=== PATIENT | female | born 1975 | race Caucasian/White ===

== ENCOUNTER 2020-08-13 14:47 | Emergency (ER) | payer BC ==
[2020-08-13] MEDS ORDERED: Sodium Chloride 0.9% 10 ML Syringe FLUSH PRN (15:18)
--- NOTE | 2020-08-13 15:24 | EDM.PDOC ---
ED HPI GENERAL MEDICAL PROBLEM - General Chief Complaint: Genitourinary Problem Stated Complaint: 8 WEEKS PREG/CRAMPING Time Seen by Provider: 08/13/20 14:59 Source of Information: Reports: Patient, RN Notes Reviewed History Limitations: Reports: No Limitations - History of Present Illness INITIAL COMMENTS - FREE TEXT/NARRATIVE: Patient is a 45-year-old female who presents to the ER for her evaluation of with vaginal bleeding and abdominal cramping. Patient notes that she is 8 weeks , her last menstrual period was June 14, 2020, she is a G8, P3, and has had multiple spontaneous miscarriages. She sees an [facility] TECHNIC[facility] provider in [place]. Patient states that the cramping has progressively gotten worse throughout the , but it seemed to have worsened this morning at around 10 AM, she did call her doctor in [place], they scheduled her for an ultrasound tomorrow however she is worried because she has some some associated vaginal bleeding as well causing some increased anxiety. She did use Tylenol for her pain, this seemed to help take the edge off. She has taken exactly 1.5 tabs of an extra strength Tylenol, throughout the morning. She has had no fevers or chills, cough or shortness of breath, any other sick-like symptoms, she further denies any urinary issues. Patient notes she last ate at around 1130 or noon. States that she has only had a small amount of vaginal bleeding and has only soaked through 1 light pad for today's purposes. Abdomen Pain Score (Numeric/FACES): 5 - Related Data Allergies Allergy/AdvReac Type Severity Reaction Status Date / Time No Known Allergies Allergy Verified 08/13/20 14:57 Home Meds: Home Meds Levothyroxine Sodium [Synthroid] 75 mcg PO DAILY 08/13/20 [History] Pnv No.103/Folic/Om3s/Fish Oil [ Gummies] 2 tab PO DAILY 08/13/20 [History] Past Medical History [employer]IAN History: Reports: , Spontaneous Endocrine/Metabolic History: Reports: Hypothyroidism - Past Surgical History HEENT Surgical History: Reports: Oral Surgery Social & Family History - Tobacco Use Tobacco Use Status *Q: Never Tobacco User - Caffeine Use Caffeine Use: Reports: None - Recreational Drug Use Recreational Drug Use: No ED ROS GENERAL - Review of Systems Review Of Systems: Comprehensive ROS is negative, except as noted in HPI. ED EXAM, RENAL/ - Physical Exam Exam: See Below Exam Limited By: No Limitations General Appearance: Alert, WD/WN, No Apparent Distress Respiratory/Chest: No Respiratory Distress, Lungs Clear, Normal Breath Sounds, No Accessory Muscle Use, Chest Non-Tender Cardiovascular: Normal Peripheral Pulses, Regular Rate, Rhythm, No Murmur GI/Abdominal: Normal Bowel Sounds, Soft, No Distention, No Mass, Tender (suprapubic/pelvic tenderness) Extremities: Normal Inspection, Normal Capillary Refill Neurological: Alert, Oriented, Normal Cognition, No Motor/Sensory Deficits Psychiatric: Normal Affect, Normal Mood Skin Exam: Warm, Dry, Intact, Normal Color, No Rash Course - Vital Signs Last Recorded V/S: Last Vital Signs Temp 97.1 F 08/13/20 14:53 Pulse 62 08/13/20 14:53 Resp 20 08/13/20 14:53 BP 127/78 08/13/20 14:53 Pulse Ox 100 08/13/20 14:53 - Orders/Labs/Meds Orders: Active Orders 24 hr Category Date Time Status Peripheral IV Care [RC] . DIRECTED Care 08/13/20 15:19 Ordered PATIENT RETYPE [BBK] Routine Lab 08/13/20 17:55 Ordered TYPE AND SCREEN [BBK] Stat Lab 08/13/20 15:18 Ordered Sodium Chloride 0.9% [Saline Flush] Med 08/13/20 15:18 Ordered 10 ml FLUSH ASDIRECTED PRN Peripheral IV Insertion Adult [OM.PC] Stat Oth 08/13/20 15:18 Ordered Medication Orders Sodium Chloride (Sodium Chloride 0.9% 10 Ml Syringe) 10 ml FLUSH ASDIRECTED PRN PRN Reason: Keep Vein Open Labs: Laboratory Tests 08/13/20 08/13/20 08/13/20 Range/Units 15:27 15:27 15:27 WBC 11.37 H (3.98-10.04) K/mm3 RBC 4.39 (3.98-5.22) M/mm3 Hgb 13.5 (11.2-15.7) gm/dl Hct 40.0 (34.1-44.9) % MCV 91.1 (79.4-94.8) fl MCH 30.8 (25.6-32.2) pg MCHC 33.8 (32.2-35.5) g/dl RDW Std Deviation 40.8 (36.4-46.3) fL Plt Count 417 H (182-369) K/mm3 MPV 8.9 L (9.4-12.3) fl Neut % (Auto) 76.0 H (34.0-71.1) % Lymph % (Auto) 15.3 L (19.3-51.7) % Tyrrell % (Auto) 7.2 (4.7-12.5) % Eos % (Auto) 0.9 (0.7-5.8) Baso % (Auto) 0.3 (0.1-1.2) % Neut # (Auto) 8.65 H (1.56-6.13) K/mm3 Lymph # (Auto) 1.74 (1.18-3.74) K/mm3 Tyrrell # (Auto) 0.82 H (0.24-0.36) K/mm3 Eos # (Auto) 0.10 (0.04-0.36) K/mm3 Baso # (Auto) 0.03 (0.01-0.08) K/mm3 Manual Slide Review HCG, Quant 1765.0 mIU/mL Blood Type O NEGATIVE Meds: Medications Generic Name Dose Route Start Last Admin Trade Name Freq PRN Reason Stop Dose Admin Sodium Chloride 10 ml 08/13/20 15:18 Sodium Chloride 0.9% 10 Ml Syringe FLUSH ASDIRECTED PRN Keep Vein Open - Re-Assessments/Exams Free Text/Narrative Re-Assessment/Exam: 08/13/20 15:23 Patient presents to the ER for her vaginal bleeding and , we will go ahead and get an IV established, some baseline labs, get ultrasound for evaluation. Patient notes that she is Rh- for blood typing purposes. 08/13/20 18:09 Patient's ultrasound did come back along with her labs, CBC is 11.87, hemoglobin was 13.5, hCG was 1765. Ultrasound demonstrated no intrauterine gestational sac, complicated fluid within the cul-de-sac compatible with mild amount of free blood, echogenic bowel within the pelvis which could obscure an ectopic . I did go ahead and call Dr. Fadumo Lopez her [employer] TECHNICIAN in [place], she notes that the patient's hCG roughly 2 to 3 weeks ago was almost 7500, with the findings we found today she does agree that this is most likely a spontaneous miscarriage in nature. 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 Dr. Lopez states that there is no harm in trying to give the patient RhoGam if she would like to do this however she can follow-up with Dr. Lopez, within the week and/or earlier for ongoing management. As of now the patient has opted to wait on the RhoGam and talk with Dr. Lopez tomorrow. Departure - Departure Time of Disposition: 18:10 Disposition: Home, Self-Care 01 Condition: Good Clinical Impression: Incomplete , Complete - Discharge Information Instructions: Miscarriage, [id number] Referrals: PCP,Not In Area [Primary Care Provider] - Forms: ED Department Discharge Additional Instructions: You were evaluated in the ER today regarding your abdominal pain/vaginal bleeding in . You did have some labs drawn, and these were within normal limits, your hCG level was 1765, your blood type is O-. Your ultrasound demonstrated no intrauterine gestational sac, which is more consistent with a miscarriage for this . Your hCG level roughly 3 weeks ago, done by your SUP[employer] CH[employer] TECHNICIAN was 7500, the ultrasound results, and the declining hCG levels again is more conclusive with a miscarriage at this time. Recommend that you do not lift anything heavier than a gallon of milk (5 lbs), do not engage in sexual activities, try to get as much pelvic rest as possible for the next few days. Please try not to exert yourself, rest and relax, and take it easy. If you are bleeding through more than 1-2 maxi pads every couple hours, this would be cause for concern to return to the ER for immediate management. Please follow with Dr. Lopez, via phone tomorrow to obtain an appointment with her sometime within the week to be evaluated again. You should talk with her about the possibility of getting RhoGam as you did not receive that at today's visit versus waiting due to the antibodies to you that you have present in your blood. Please return to the ED at any time if your symptoms change or worsen. Sepsis Event Note (ED) - Evaluation Sepsis Screening Result: No Definite Risk - Focused Exam Vital Signs: Vital Signs Temp Pulse Resp BP Pulse Ox 08/13/20 14:53 97.1 F 62 20 127/78 100 - My Orders Last 24 Hours: My Active Orders 08/13/20 15:18 TYPE AND SCREEN [BBK] Stat Sodium Chloride 0.9% [Saline Flush] 10 ml FLUSH ASDIRECTED PRN Peripheral IV Insertion Adult [OM.PC] Stat 08/13/20 15:19 Peripheral IV Care [RC] . DIRECTED 08/13/20 17:55 PATIENT RETYPE [BBK] Routine - Assessment/Plan Last 24 Hours: My Active Orders 08/13/20 15:18 TYPE AND SCREEN [BBK] Stat Sodium Chloride 0.9% [Saline Flush] 10 ml FLUSH ASDIRECTED PRN Peripheral IV Insertion Adult [OM.PC] Stat 08/13/20 15:19 Peripheral IV Care [RC] . DIRECTED 08/13/20 17:55 PATIENT RETYPE [BBK] Routine
--- NOTE | 2020-08-13 17:20 | US ---
First trimester obstetrical ultrasound: Multiple real-time images were obtained transvaginally. Endometrium shows no intrauterine gestational sac. Endometrial thickness measures up to 1.8 cm. Pelvis is full of shadowing bowel which could obscure an ectopic . There is complicated fluid within the cul-de-sac presumably due to blood. Small cyst is noted within the left ovary measuring 1.8 x 1.3 x 1.4 cm. Impression: 1. No intrauterine gestational sac. Endometrial thickness of 1.8 cm. 2. Complicated fluid within the cul-de-sac compatible with mild amount of free blood. 3. Echogenic bowel within the pelvis which could obscure an ectopic . Diagnostic code #5
== END 2020-08-13 18:30 | disposition home or self-care (01) ==
LOC: JD.ED 14:47
DX: O03.4 Incomplete spontaneous abortion without complication (principal); E03.9 Hypothyroidism, unspecified; Z79.899 Other long term (current) drug therapy
CPT/HCPCS: 36415; 76817; 76817-26; 84702; 85025; 99284-25